=== PATIENT | female | born 1995 | race Caucasian/White ===

== ENCOUNTER 2018-04-23 16:06 | Emergency (ER) | END 2018-04-23 18:59 | disposition home or self-care (01) ==

== ENCOUNTER 2018-11-15 04:17 | Inpatient (IN) | payer OTHER ==
[~2018-11-15] VITALS: Ht 160 cm; Wt 100.5 kg
--- NOTE | 2018-11-15 04:36 | TRIAGE ---
OB Triage Datetime Report Generated by CPN: 11/15/2018 04:36 Datetime: 11/15/2018 04:29 Membrane Status: Ruptured Datetime: 11/15/2018 04:26 Stage of : OB Triage Assessment Type: Triage Maternal Assessment Level of Consciousness: Fully Conscious Headache: Denies Blurred Vision: No Respiratory Effort: Unlabored; Regular Rhythm; Equal Expansion Nausea/Vomiting: Denies RUQ Epigastric Pain: Denies Facial Edema: None Fall Risk Assessment History of Falling: (0) No Secondary Diagnosis: (0) No Ambulatory Aid: (0) Bedrest/Nurse Assist IV Therapy: (0) No Gait: (0) Normal/Bedrest/Immobile Mental Status: (0) Oriented to Own Ability Fall Score: 0 Fall Risk Score Definition: No Risk: No action required Datetime: 11/15/2018 04:25 EGA: 39.1 Datetime: 11/15/2018 04:24 Time of Arrival: 11/15/2018 04:06 Arrived By: Ambulatory Arrived From: Home Chief Complaint: SROM AT 0340 Movement: Present Contractions: Occasional Contractions: 'RANDOM' Rupture of Membranes: Ruptured Vaginal Bleeding: None Vaginal Discharge: Denies Recent Sexual Intercouse: Denies Abdominal Trauma: Not Applicable Patient Complaints: Other Time Provider Notified: 11/15/2018 04:31 Provider Notified: SALCEDA Initial Plan: EFM, SVE, CALL OB Datetime: 11/15/2018 04:22 Vaginal Exam Dilatation (cms): 2.5 Effacement (%): 70 Station: -2 Exam By: CYNTHIA DUARTE Vaginal Bleeding: None Cervix, Consistency: Soft Cervix, Position: Midposition Presentation 'A': Cephalic
[2018-11-15 04:39] VITALS: Ht 160 cm; Wt 100.5 kg
[2018-11-15] MEDS ORDERED: AMPICILLIN 2 GM/NS (PMX) 100 ML IV ONE (05:00)
[2018-11-15] MEDS ORDERED: LIDOCAINE 1% (MPF) 30 ML INJ INJ PRN (05:00)
[2018-11-15] MEDS ORDERED: CARBOPROST 250 MCG INJ IM PRN ×2 (05:00→20:30)
[2018-11-15] MEDS ORDERED: MINERAL OIL LIGHT 10 ML VIAL TOP PRN (05:00)
[2018-11-15] MEDS ORDERED: METHYLERGONOVINE 0.2 MG INJ IM PRN ×2 (05:00→20:30)
[2018-11-15] MEDS ORDERED: MISOPROSTOL 200 MCG TAB PR PRN ×2 (05:00→20:30)
[2018-11-15] MEDS ORDERED: OXYTOCIN 30 UNITS/LR 500 ML IV PRN ×2 (05:00→20:30)
[2018-11-15] MEDS ORDERED: BUTORPHANOL 2 MG INJ IV PRN (05:00)
[2018-11-15] MEDS ORDERED: OXYTOCIN 30 UNITS/LR 500 ML IV SCH ×4 (05:00→20:14)
[2018-11-15] MEDS: LACTATED RINGER'S 1,000 ML IV SCH ×2 (05:13→09:51)
[2018-11-15] MEDS ORDERED: OXYTOCIN 30 UNITS/LR 500 ML BAG IV ONE (07:00)
[2018-11-15] MEDS ORDERED: OXYTOCIN 10 UNIT INJ ONE (07:00)
[2018-11-15] MEDS: AMPICILLIN 1 GM/NS (PMX) 50 ML IV SCH ×3 (08:57→16:50)
[2018-11-15] MEDS ORDERED: FENTAnyl 2MCG/ML-ROPIV 0.2% 100 ML ONE (09:36)
--- NOTE | 2018-11-15 09:46 | PREAC ---
Date/Time of Note Date/Time of Note DATE: 11/15/18 TIME: 09:45 Anesthesia Eval and Record Evaluation Time Pre-Procedure Interview DATE: 11/15/18 TIME: 09:45 Age 23 Sex female NPO: 8 hrs Preoperative diagnosis Labor Pain Planned procedure Labor Epidural Past Medical History Past Medical History: Includes Heme: Anemia : : (1), Para: (0), Gestational age: (39) Surgery & Anesthesia Issues No known issue Meds Anticoagulation: No Beta Warren within 24 hr: No Reason Beta Warren not given: Pt. not on B-Warren Current Medications Lactated Ringer's 1,000 ml @ 125 mls/hr Q8H IV Last administered on 11/15/18at 05:13; Admin Dose 125 MLS/HR; Start 11/15/18 at 04:39 Ampicillin 50 ml @ 100 mls/hr Q4H IV Last administered on 11/15/18at 08:57; Admin Dose 100 MLS/HR; Start 11/15/18 at 09:00 Butorphanol Tartrate (Stadol) 2 mg Q2H PRN IV PAIN; Start 11/15/18 at 05:00 Lidocaine (Xylocaine 1% (Mpf)) 30 ml ONCE PRN INJ EPISIOTOMY; Start 11/15/18 at 05:00 Oxytocin/Lactated Ringer's 500 ml @ 500 mls/hr ONCE POST IV ; Start 11/15/18 at 05:00 Oxytocin/Lactated Ringer's 500 ml @ 125 mls/hr POST IV ; Start 11/15/18 at 05:00 Ibuprofen (Motrin) 600 mg ONCE PRN PO PAIN LEVEL 1-5; Start 11/15/18 at 05:00 Oxytocin/Lactated Ringer's 500 ml @ 0 mls/hr ONCE PRN IV VAGINAL BLEEDING; Start 11/15/18 at 05:00 Methylergonovine Maleate (Methergine) 0.2 mg ONCE PRN IM VAGINAL BLEEDING; Start 11/15/18 at 05:00 Carboprost Tromethamine (Hemabate) 250 mcg ONCE PRN IM VAGINAL BLEEDING; Start 11/15/18 at 05:00 Misoprostol (Cytotec) 1,000 mcg ONCE PRN MD VAGINAL BLEEDING; Start 11/15/18 at 05:00 Mineral Oil (Muri-Lube) 20 ml ONCE PRN TOP VAGINAL DELIVERY; Start 11/15/18 at 05:00 Oxytocin/Lactated Ringer's 500 ml @ 0 mls/hr FOR AUGMENTATION IV Last administered on 11/15/18at 09:01; Admin Dose 2 MLS/HR; Start 11/15/18 at 09:00 Meds reviewed: Yes Allergies Coded Allergies: No Known Allergy (Unverified , 11/15/18) Allergies Reviewed: Yes Labs/Studies Labs Reviewed: Reviewed by anesthesiologist Result Diagram: 11/15/18 0500 Laboratory Tests 11/15/18 05:00 Blood Bank Test 11/15/18 05:00 Antibody Screen NEGATIVE Blood Type A POSITIVE Rh Immune Globulin Candidate NO test: Positive Studies: ECG (n/a), CXR (n/a) Pre-procedure Exam Airway: Adequate mouth opening, Adequate thyromental dist Mallampati: Mallampati II Teeth: Normal Lung: Normal Heart: Normal ASA Physical Status ASA physical status: 2 Emergency: None Planned Anesthetic Neuraxial: Epidural Planned Pain Management Epidural Pre-operative Attestations Prior to commencing anesthesia and surgery, the patient was re-evaluated, there was verification of: *The patient's identity *The results of appropriate recent lab work and preoperative vital signs *The above evaluation not changing prior to induction *Anesthetic plan, risk benefits, alternative and complications discussed with patient/family; questions answered; patient/family understands, accepts and wishes to proceed. MIKE STILES MD Nov 15, 2018 09:46
--- NOTE | 2018-11-15 09:47 | PAC ---
Date/Time of Note Date/Time of Note DATE: 11/15/18 TIME: 09:47 Post-Anesthesia Notes Post-Anesthesia Note Last documented vital signs T 98.1 Activity: WNL Respiratory function: WNL Cardiovascular function: WNL Mental status: Baseline Pain reasonably controlled: Yes Hydration appropriate: Yes Nausea/Vomiting absent: Yes MIKE STILES MD Nov 15, 2018 09:47
[2018-11-15] MEDS ORDERED: FENTAnyl 2MCG/ML-ROPIV 0.2% 100 ML BAG EPI SCH (10:00)
[2018-11-15] MEDS ORDERED: NALOXONE (0.4 MG/ML) INJ IV PRN ×2 (10:00→19:00)
[2018-11-15] MEDS ORDERED: CEFAZOLIN 2 GM/50 ML (PMX) 50 ML IVPB ONE ×2 (17:46→18:00)
--- NOTE | 2018-11-15 18:12 | PREOPHP ---
DATE OF ADMISSION: 11/15/2018 HISTORY OF PRESENT ILLNESS: This is a 23-year-old lady, 1, EDC 11/21/2018 at 39 and 1/7 weeks, admitted to labor and delivery area in labor with ruptured bag of water at 3:40 a.m. on 11/15/2018, followed by contractions. She had care in my [place] office and the care was uneventful. PAST PERSONAL HISTORY: No history of diabetes, TB, asthma. ALLERGIES: NO ALLERGIES. SOCIAL HISTORY: The patient does not smoke. She does not drink. MEDICATIONS: She does not take any drugs except her iron and vitamins. GYNECOLOGIC HISTORY: She had menarche at the age of 10, every 28 days interval, 3 to 4 days duration, and moderate in amount. FAMILY HISTORY: Grandmother on mother's side has diabetes. She is 1, para 0. She had positive GBS. REVIEW OF SYSTEMS: CARDIOVASCULAR: No chest pains. RESPIRATORY: No cough. GASTROINTESTINAL: No diarrhea, no vomiting. GENITOURINARY: No dysuria. PHYSICAL EXAMINATION: GENERAL: Reveals a conscious, coherent lady and in no acute distress. VITAL SIGNS: Her blood pressure 120/80, pulse rate 80 per minute, respirations 16 per minute. BREASTS, HEART AND LUNGS: Within normal limits. ABDOMEN: Soft, fundic height 38 cm. heart tones 140 per minute. PELVIC: Done by nurse on admission revealed the cervix to be 1 to 2 cm dilatation, -2 in cephalic presentation with the bag of water ruptured. Nitrazine test was positive. EXTREMITIES: No pedal edema. ADMITTING DIAGNOSIS: She is 39 and 1/7 weeks intrauterine in labor. The patient had an ultrasound done and the estimated weight was 7 pounds 15 ounces. So, she was started on Pitocin augmentation with a positive GBS. She was given ampicillin. At 8:45 a.m., I re-evaluated the patient. The cervix was 5 cm dilated, 100% effaced, station 0 with a bag of water ruptured. scalp electrodes and IPC were inserted. She was started on Pitocin augmentation. The vagina was noted to be very tight with converging sidewalls, but the patient wanted to try vaginal delivery. Then, she was continued on Pitocin and she received labor epidural. At 1:19 p.m., she was 7 cm dilated and Pitocin was at 6 milliunits. Then, when she was completely dilated and when the patient was feeling pressure pushing she was coached to push. The patient was pushing for at least 1-1/2 hours. The station remained to be at 0 station with +3, +2 to +3 caput. After 1.5 hours of pushing, the patient refused to continue to push. She wanted to go for , so the indication for was arrest of descent and the patient desired and cephalopelvic disproportion at 39 weeks and 11/16. The procedures were explained to the patient and to her partner and both understood everything totally. The risks, benefits, and alternatives was discussed with her as well. Dictated By: BEBO AQUINO/FREDERIC Conf#: [id number] DID#: [id number] MTDD
[2018-11-15] MEDS ORDERED: FENTAnyl 50 MCG/ML VIAL ONE (18:14)
[2018-11-15] MEDS ORDERED: ONDANSETRON 4 MG INJ ONE (18:25)
[2018-11-15] MEDS ORDERED: METOCLOPRAMIDE 10 MG INJ ONE (18:25)
[2018-11-15] MEDS ORDERED: KETOROLAC 30 MG INJ ONE (18:25)
[2018-11-15] MEDS ORDERED: morphine SULFATE/PF (10 MG/10 ML) INJ ONE (18:25)
[2018-11-15] MEDS ORDERED: DEXAMETHASONE 4 MG/ML 1 ML INJ ONE (18:25)
[2018-11-15] MEDS ORDERED: LABETALOL HCL 20MG INJ IV PRN (19:00)
[2018-11-15] MEDS ORDERED: NALBUPHINE HCL (10 MG/1 ML) INJ IV PRN (19:00)
[2018-11-15] MEDS ORDERED: DIPHENHYDRAMINE 50 MG INJ IV PRN ×2 (19:00)
[2018-11-15] MEDS ORDERED: EPHEDrine SULFATE 50 MG/5 ML SYG IV PRN (19:00)
[2018-11-15] MEDS ORDERED: MEPERIDINE 25 MG INJ IV PRN (19:00)
[2018-11-15] MEDS ORDERED: OXYCODONE/ACETAMINOPHEN (5/325) TAB PO PRN (19:00)
[2018-11-15] MEDS ORDERED: HYDROmorphONE 0.5 MG/0.5 ML SYG IV PRN ×2 (19:00)
[2018-11-15] MEDS ORDERED: morphine 2 MG INJ IV PRN ×2 (19:00)
[2018-11-15] MEDS ORDERED: HYDROmorphONE 1 MG/5 ML IV SYRINGE IV PRN ×3 (19:00)
[2018-11-15] MEDS ORDERED: ACETAMINOPHEN 500 MG TAB PO PRN (19:00)
[2018-11-15] MEDS ORDERED: ONDANSETRON 4 MG INJ IV PRN ×2 (19:00)
[2018-11-15] MEDS ORDERED: KETOROLAC 30 MG INJ IV PRN (19:00)
[2018-11-15] MEDS ORDERED: FENTAnyl 50 MCG/ML VIAL IV PRN ×3 (19:00)
[2018-11-15] MEDS ORDERED: METOCLOPRAMIDE 10 MG INJ IV PRN (19:00)
[2018-11-15] MEDS ORDERED: LACTATED RINGER'S 1,000 ML IV SCH (20:14)
--- NOTE | 2018-11-15 20:14 | OPPN ---
Date/Time of Note Date/Time of Note DATE: 11/15/18 TIME: 20:11 Operative Report Planned Procedure Procedure date Nov 15, 2018 Procedure(s) PRIMARY CSECTION Performed by see signature line Scutcher Tender: SAI HART M.D. 2nd Scutcher Tender none Pre-procedure diagnosis [id number] 17 IUP IN LABOR CPD ARREST OF DECENT DESIRES CSECTION SUSPECTED MACROSOMIA [id number] Anesthesia Type: [id number] epidural Post-Procedure Post-procedure diagnosis 39WEEKS 11/16 IUP IN LABOR CPD ARREST OF DECENT DESIRES CSECTION SUSPECTED MACROSOMIA Findings Live Baby GIRL, Apgars 8and 9, [id number] Estimated Blood Loss: 500 - 600 mls Specimen(s) none Grafts/Implant(s) PLACENTA Complication(s) none BEBO PETER MD Nov 15, 2018 20:14
[2018-11-15] MEDS ORDERED: METHYLERGONOVINE 0.2 MG TAB PO PRN (20:30)
[2018-11-15] MEDS ORDERED: LANOLIN HPA 1 PKT TOP PRN (20:30)
[2018-11-15] MEDS ORDERED: HYDROCODONE/APAP (5/325) TAB PO PRN (20:30)
[2018-11-15] MEDS: SENNA/DOCUSATE NA (8.6MG/50MG) TAB PO SCH (21:00)
[2018-11-15 22:00] VITALS: BP 120/68; PULSE 67; RESP 18
[2018-11-16] VITALS: BP 121/61; PULSE 75; RESP 18
[2018-11-16 03:45] VITALS: BP 116/69; PULSE 87; RESP 18
[2018-11-16 08:00] VITALS: BP 106/58; PULSE 78; RESP 19
[2018-11-16] MEDS: SENNA/DOCUSATE NA (8.6MG/50MG) TAB PO SCH ×2 (09:08→21:37)
[2018-11-16] MEDS ORDERED: INFLUENZA VIRUS VACCINE 0.5 ML (DISPENSING) IM* ONE (10:00)
[2018-11-16 12:00] VITALS: BP 105/60; PULSE 74; RESP 20
[2018-11-16] MEDS ORDERED: LACTATED RINGER'S 1,000 ML IV SCH (14:00)
[2018-11-16 16:00] VITALS: BP 102/56; PULSE 94; RESP 20
--- NOTE | 2018-11-16 16:25 | PN ---
Date/Time of Note Date/Time of Note DATE: 11/16/18 TIME: 16:24 Assessment/Plan VTE Prophylaxis Risk score (from Ns)>0 risk: 3 SCD applied (from [facility] [place] Yes SCD contraindicated: low risk/ambulating Pharmacological prophylaxis: NA/contraindicated Pharm contraindication: low risk/ambulating Lines/Catheters IV C[facility]ter Type (from [facility]): Peripheral IV Assessment/Plan Assessment/Plan POSTCSECTION DAY 1 CHRONIC IRON DEFICIENCY ANEMIA ORDERED ADVANCE DIET TOLERATED CBC ON 3RD POSTOP DAY Result Diagram: 11/16/18 0646 11/16/18 0646 Results 24hrs Laboratory Tests Test 11/16/18 06:46 White Blood Count 20.2 #H Red Blood Count 3.51 L Hemoglobin 9.6 L Hematocrit 29.5 L Mean Corpuscular Volume 84.0 Mean Corpuscular Hemoglobin 27.4 L Mean Corpuscular Hemoglobin Concent 32.5 Red Cell Distribution Width 13.5 Platelet Count 169 Mean Platelet Volume 12.2 H Immature Granulocytes % 0.600 H Neutrophils % 88.0 H Lymphocytes % 6.9 L Monocytes % 4.4 Eosinophils % 0.0 Basophils % 0.1 Nucleated Red Blood Cells % 0.0 Immature Granulocytes # 0.120 H Neutrophils # 17.7 H Lymphocytes # 1.4 Monocytes # 0.9 Eosinophils # 0.0 Basophils # 0.0 Nucleated Red Blood Cells # 0.0 Sodium Level 133 L Potassium Level 4.1 Chloride Level 105 Carbon Dioxide Level 20 L Anion Gap 8 Blood Urea Nitrogen 11 Creatinine 0.61 Est Glomerular Filtrat Rate mL/min > 60 Glucose Level 103 Calcium Level 8.9 Subjective 24 Hr Interval Summary Free Text/Dictation POST CSECTION DAY 1 COMPLAIN OF INCISIONAL PAINS GOOD URINE OUTPUT PASSING GAS PER RECTUM NO BOWEL MOVEMENT YET Exam/Review of Systems Vital Signs Vitals Vital Signs Date Temp Pulse Resp B/P (MAP) Pulse Ox O2 O2 Flow FiO2 Time Delivery Rate 11/16/18 98.6 94 20 102/56 97 Room Air 16:00 (71) Intake and Output 11/15/18 11/15/18 11/16/18 1515:00 23:00 07:00 IntakeIntake Total 106 ml 1580 ml OutputOutput Total 2173 ml 550 ml BalanceBalance 106 ml -593 ml -550 ml Exam VITAL SIGNS STABLE: YES AFEBRILE: YES BREAST NOT ENGORGED, NON-TENDER, NO APPRECIABLE MASS: YES LUNGS CLEAR, NO RALES, WHEEZES, RHONCHI: YES SINUS RHYTHM WITHOUT MURMUR: YES ABDOMEN: NON-TENDER FUNDUS: BELOW UMBILICUS BOWEL SOUNDS: PRESENT UTERUS: FIRM INCISION (CLEAN, DRY, AND INTACT): YES LOCHIA: LIGHT DEEP TENDON REFLEXES: 0 EXTREMITIES: NO CALF TENDERNESS EDEMA SCALE: NONE Medications Medications Current Medications Butorphanol Tartrate (Stadol) 2 mg Q2H PRN IV PAIN; Start 11/15/18 at 05:00 Lidocaine (Xylocaine 1% (Mpf)) 30 ml ONCE PRN INJ EPISIOTOMY; Start 11/15/18 at 05:00 Ibuprofen (Motrin) 600 mg ONCE PRN PO PAIN LEVEL 1-5; Start 11/15/18 at 05:00 Oxytocin/Lactated Ringer's 500 ml @ 0 mls/hr ONCE PRN IV VAGINAL BLEEDING; Start 11/15/18 at 05:00 Methylergonovine Maleate (Methergine) 0.2 mg ONCE PRN IM VAGINAL BLEEDING; Start 11/15/18 at 05:00 Carboprost Tromethamine (Hemabate) 250 mcg ONCE PRN IM VAGINAL BLEEDING; Start 11/15/18 at 05:00 Misoprostol (Cytotec) 1,000 mcg ONCE PRN VA VAGINAL BLEEDING; Start 11/15/18 at 05:00 Mineral Oil (Muri-Lube) 20 ml ONCE PRN TOP VAGINAL DELIVERY; Start 11/15/18 at 05:00 Naloxone HCl (Narcan) 0.2 mg Q2M PRN IV DECREASED REPIRATORY RATE; Start 11/15/18 at 10:00 Hydromorphone HCl (Dilaudid) 0.2 mg Q2H PRN IV PAIN LEVEL 1-5; Start 11/15/18 at 19:00 Hydromorphone HCl (Dilaudid) 0.4 mg Q2H PRN IV PAIN LEVEL 6-10; Start 11/15/18 at 19:00 Morphine Sulfate (morphine) 2 mg Q2H PRN IV PAIN LEVEL 1-5; Start 11/15/18 at 19:00 Morphine Sulfate (morphine) 4 mg Q2H PRN IV PAIN LEVEL 6-10; Start 11/15/18 at 19:00 Ketorolac Tromethamine (Toradol) 30 mg Q6H PRN IV PAIN LEVEL 6-10; Start 11/15/18 at 19:00; Stop 11/18/18 at 18:59 Acetaminophen (Tylenol Tab) 500 mg Q4H PRN PO PAIN LEVEL 1-3; Start 11/15/18 at 19:00 Acetaminophen/ Hydrocodone Bitart ([place] (5/325)) 1 tab Q4H PRN PO PAIN LEVEL 4-6; Start 11/15/18 at 19:00 Diphenhydramine HCl (Benadryl) 25 mg Q4H PRN IV PRURITUS; Start 11/15/18 at 19:00 Nalbuphine HCl (Nubain) 10 mg Q4H PRN IV PRURITUS; Start 11/15/18 at 19:00 Ondansetron HCl (Zofran Inj) 4 mg Q6H PRN IV NAUSEA AND/OR VOMITING; Start 11/15/18 at 19:00 Naloxone HCl (Narcan) 0.2 mg Q2M PRN IV DECREASED REPIRATORY RATE; Start 11/15/18 at 19:00 Miscellaneous Information (* Miscellaneous Pharmacy Order) DURAMORPH: 5 MG EPIDU... GIVEN NEURAXIAL XX ; Start 11/15/18 at 19:00 Methylergonovine Maleate (Methergine) 0.2 mg Q6H PRN PO VAGINAL BLEEDING; Start 11/15/18 at 20:30 Acetaminophen/ Hydrocodone Bitart ([place] (5/325)) 1 tab Q4H PRN PO PAIN LEVEL 4-6; Start 11/15/18 at 20:30 Acetaminophen/ Hydrocodone Bitart ([place] (5/325)) 2 tab Q4H PRN PO PAIN LEVEL 7-10; Start 11/15/18 at 20:30 Ibuprofen (Motrin) 800 mg Q8 PRN PO MILD PAIN LEVEL 1-3; Start 11/18/18 at 19:00 Simethicone (Mylicon) 160 mg Q8H PRN PO DISTENSION/GAS/BLOATING; Start 11/15/18 at 20:30 Senna/Docusate Sodium (Senokot-S) 1 tab BID PO Last administered on 11/16/18at 09:08; Admin Dose 1 TAB; Start 11/15/18 at 21:00 Lanolin (Lanolin Hpa) 1 applic BEDSIDE MEDICATION PRN TOP BEDSIDE FOR LOUIE TO NIPPLES Last administered on 11/16/18at 09:08; Admin Dose 1 APPLIC; Start 11/15/18 at 20:30 Diphtheria/ Tetanus/Acell Pertussis (Adacel) 0.5 ml ONCE ONCE IM* ; Start 11/18/18 at 09:00; Stop 11/18/18 at 09:01 Measles/Mumps/ Rubella Vaccine Live (Mmr Ii Vaccine) 0.5 ml ONCE ONCE SC* ; Start 11/18/18 at 09:00; Stop 11/18/18 at 09:01 Oxytocin/Lactated Ringer's 500 ml @ 0 mls/hr ONCE PRN IV VAGINAL BLEEDING; Start 11/15/18 at 20:30 Methylergonovine Maleate (Methergine) 0.2 mg ONCE PRN IM VAGINAL BLEEDING; Start 11/15/18 at 20:30 Carboprost Tromethamine (Hemabate) 250 mcg ONCE PRN IM VAGINAL BLEEDING; Start 11/15/18 at 20:30 Misoprostol (Cytotec) 1,000 mcg ONCE PRN VA VAGINAL BLEEDING; Start 11/15/18 at 20:30 BEBO PETER MD Nov 16, 2018 16:25
[2018-11-16 20:00] VITALS: BP 120/66; PULSE 78; RESP 20
[2018-11-16] MEDS: HYDROCODONE/APAP (5/325) TAB PO PRN (21:37)
[2018-11-16] MEDS: IBUPROFEN 600 MG TAB PO PRN (21:37)
[2018-11-17 02:50] VITALS: BP 105/54; PULSE 79; RESP 20
[2018-11-17] MEDS: HYDROCODONE/APAP (5/325) TAB PO PRN ×3 (03:39→16:43)
[2018-11-17] MEDS ORDERED: BISACODYL 10 MG SUPP PR ONE ×2 (05:30→17:00)
[2018-11-17] MEDS ORDERED: MAGNESIUM HYDROXIDE 30ML CUP PO ONE (05:30)
[2018-11-17 08:00] VITALS: BP 105/59; PULSE 71; RESP 18
[2018-11-17] MEDS: SENNA/DOCUSATE NA (8.6MG/50MG) TAB PO SCH ×2 (09:01→21:46)
--- NOTE | 2018-11-17 13:31 | PN ---
Date/Time of Note Date/Time of Note DATE: 11/17/18 TIME: 13:30 Assessment/Plan VTE Prophylaxis Risk score (from Ns)>0 risk: 3 SCD applied (from Ns): No SCD contraindicated: low risk/ambulating Pharmacological prophylaxis: NA/contraindicated Pharm contraindication: low risk/ambulating Lines/Catheters IV Catheter Type (from Nrsg): Sal[place] Assessment/Plan Assessment/Plan POST CSECTION DAY 2 CHRONIC IRON DEFICIENCY ANEMIA HOME TOMORROW CBC TOMORROW COUNSELED INSTRUCTED PRESCRIPTION GIVEN FOR PAIN RETURN TO CLINIC IN 2 WEEKS CALL OFFICE IF THERE IS ANY PROBLEM OR CONCERN CONTINUE WITH VITAMINS OD AND FERROUS SULFATE 325MG PO TID DIET ADVISED Result Diagram: 11/17/18 0747 11/16/18 0646 Results 24hrs Laboratory Tests Test 11/17/18 07:47 White Blood Count 11.6 #H Red Blood Count 3.12 L Hemoglobin 8.6 L Hematocrit 27.2 L Mean Corpuscular Volume 87.2 Mean Corpuscular Hemoglobin 27.6 L Mean Corpuscular Hemoglobin Concent 31.6 L Red Cell Distribution Width 13.8 Platelet Count 134 #L Mean Platelet Volume 12.1 H Immature Granulocytes % 0.400 Neutrophils % 69.7 Lymphocytes % 22.5 Monocytes % 5.9 Eosinophils % 1.2 Basophils % 0.3 Nucleated Red Blood Cells % 0.0 Immature Granulocytes # 0.050 H Neutrophils # 8.1 H Lymphocytes # 2.6 Monocytes # 0.7 Eosinophils # 0.1 Basophils # 0.0 Nucleated Red Blood Cells # 0.0 Subjective 24 Hr Interval Summary Free Text/Dictation POST CSECTION DAY 2 GOOD BOWEL MOVEMENT GOOD URINE OUTPUT FEELS LESS INCISIONAL PAINS Exam/Review of Systems Vital Signs Vitals Vital Signs Date Temp Pulse Resp B/P (MAP) Pulse Ox O2 O2 Flow FiO2 Time Delivery Rate 11/17/18 98.1 71 18 105/59 Room Air 08:00 (74) 11/16/18 97 16:00 Intake and Output 11/16/18 11/16/18 11/17/18 1515:00 23:00 07:00 IntakeIntake Total 1000 ml 925 ml OutputOutput Total 1350 ml 1550 ml 1100 ml BalanceBalance -350 ml -625 ml -1100 ml Exam VITAL SIGNS STABLE: YES AFEBRILE: YES BREAST NOT ENGORGED, NON-TENDER, NO APPRECIABLE MASS: YES LUNGS CLEAR, NO RALES, WHEEZES, RHONCHI: YES SINUS RHYTHM WITHOUT MURMUR: YES ABDOMEN: NON-TENDER FUNDUS: BELOW UMBILICUS BOWEL SOUNDS: PRESENT UTERUS: FIRM INCISION (CLEAN, DRY, AND INTACT): YES LOCHIA: LIGHT DEEP TENDON REFLEXES: 0 EXTREMITIES: NO CALF TENDERNESS EDEMA SCALE: NONE Medications Medications Current Medications Butorphanol Tartrate (Stadol) 2 mg Q2H PRN IV PAIN; Start 11/15/18 at 05:00 Lidocaine (Xylocaine 1% (Mpf)) 30 ml ONCE PRN INJ EPISIOTOMY; Start 11/15/18 at 05:00 Ibuprofen (Motrin) 600 mg ONCE PRN PO PAIN LEVEL 1-5 Last administered on 11/16/18at 21:37; Admin Dose 600 MG; Start 11/15/18 at 05:00 Oxytocin/Lactated Ringer's 500 ml @ 0 mls/hr ONCE PRN IV VAGINAL BLEEDING; Start 11/15/18 at 05:00 Methylergonovine Maleate (Methergine) 0.2 mg ONCE PRN IM VAGINAL BLEEDING; Start 11/15/18 at 05:00 Carboprost Tromethamine (Hemabate) 250 mcg ONCE PRN IM VAGINAL BLEEDING; Start 11/15/18 at 05:00 Misoprostol (Cytotec) 1,000 mcg ONCE PRN SC VAGINAL BLEEDING; Start 11/15/18 at 05:00 Mineral Oil (Muri-Lube) 20 ml ONCE PRN TOP VAGINAL DELIVERY; Start 11/15/18 at 05:00 Naloxone HCl (Narcan) 0.2 mg Q2M PRN IV DECREASED REPIRATORY RATE; Start 11/15/18 at 10:00 Hydromorphone HCl (Dilaudid) 0.2 mg Q2H PRN IV PAIN LEVEL 1-5; Start 11/15/18 at 19:00 Hydromorphone HCl (Dilaudid) 0.4 mg Q2H PRN IV PAIN LEVEL 6-10; Start 11/15/18 at 19:00 Morphine Sulfate (morphine) 2 mg Q2H PRN IV PAIN LEVEL 1-5; Start 11/15/18 at 19:00 Morphine Sulfate (morphine) 4 mg Q2H PRN IV PAIN LEVEL 6-10; Start 11/15/18 at 19:00 Ketorolac Tromethamine (Toradol) 30 mg Q6H PRN IV PAIN LEVEL 6-10 Last administered on 11/16/18at 17:53; Admin Dose 30 MG; Start 11/15/18 at 19:00; Stop 11/18/18 at 18:59 Acetaminophen (Tylenol Tab) 500 mg Q4H PRN PO PAIN LEVEL 1-3; Start 11/15/18 at 19:00 Acetaminophen/ Hydrocodone Bitart ([place] (5/325)) 1 tab Q4H PRN PO PAIN LEVEL 4-6 Last administered on 11/16/18at 21:37; Admin Dose 1 TAB; Start 11/15/18 at 19:00 Diphenhydramine HCl (Benadryl) 25 mg Q4H PRN IV PRURITUS; Start 11/15/18 at 19:00 Nalbuphine HCl (Nubain) 10 mg Q4H PRN IV PRURITUS; Start 11/15/18 at 19:00 Ondansetron HCl (Zofran Inj) 4 mg Q6H PRN IV NAUSEA AND/OR VOMITING; Start 11/15/18 at 19:00 Naloxone HCl (Narcan) 0.2 mg Q2M PRN IV DECREASED REPIRATORY RATE; Start 11/15/18 at 19:00 Miscellaneous Information (* Miscellaneous Pharmacy Order) DURAMORPH: 5 MG EPIDU... GIVEN NEURAXIAL XX ; Start 11/15/18 at 19:00 Methylergonovine Maleate (Methergine) 0.2 mg Q6H PRN PO VAGINAL BLEEDING; Start 11/15/18 at 20:30 Acetaminophen/ Hydrocodone Bitart ([place] (5/325)) 1 tab Q4H PRN PO PAIN LEVEL 4-6; Start 11/15/18 at 20:30 Acetaminophen/ Hydrocodone Bitart ([place] (5/325)) 2 tab Q4H PRN PO PAIN LEVEL 7-10 Last administered on 11/17/18at 09:01; Admin Dose 2 TAB; Start 11/15/18 at 20:30 Ibuprofen (Motrin) 800 mg Q8 PRN PO MILD PAIN LEVEL 1-3; Start 11/18/18 at 19:00 Simethicone (Mylicon) 160 mg Q8H PRN PO DISTENSION/GAS/BLOATING Last administered on 11/16/18at 21:38; Admin Dose 160 MG; Start 11/15/18 at 20:30 Senna/Docusate Sodium (Senokot-S) 1 tab BID PO Last administered on 11/17/18at 09:01; Admin Dose 1 TAB; Start 11/15/18 at 21:00 Lanolin (Lanolin Hpa) 1 applic BEDSIDE MEDICATION PRN TOP BEDSIDE FOR LOUIE TO NIPPLES Last administered on 11/16/18at 09:08; Admin Dose 1 APPLIC; Start 11/15/18 at 20:30 Diphtheria/ Tetanus/Acell Pertussis (Adacel) 0.5 ml ONCE ONCE IM* ; Start 11/18/18 at 09:00; Stop 11/18/18 at 09:01 Measles/Mumps/ Rubella Vaccine Live (Mmr Ii Vaccine) 0.5 ml ONCE ONCE SC* ; Start 11/18/18 at 09:00; Stop 11/18/18 at 09:01 Oxytocin/Lactated Ringer's 500 ml @ 0 mls/hr ONCE PRN IV VAGINAL BLEEDING; Start 11/15/18 at 20:30 Methylergonovine Maleate (Methergine) 0.2 mg ONCE PRN IM VAGINAL BLEEDING; Start 11/15/18 at 20:30 Carboprost Tromethamine (Hemabate) 250 mcg ONCE PRN IM VAGINAL BLEEDING; Start 11/15/18 at 20:30 Misoprostol (Cytotec) 1,000 mcg ONCE PRN SC VAGINAL BLEEDING; Start 11/15/18 at 20:30 Bisacodyl (Dulcolax Supp) 10 mg ONCE ONCE SC ; Start 11/17/18 at 17:00; Stop 11/17/18 at 17:01 BEBO PETER MD Nov 17, 2018 13:31
--- NOTE | 2018-11-17 13:34 | OPR ---
DATE OF OPERATION: 11/15/2018 PREOPERATIVE DIAGNOSES: 1. A 39 and 1/7 weeks' intrauterine in labor, cephalopelvic disproportion, arrest of desce nt. 2. The patient desires . 3. Suspected macrosomia. POSTOPERATIVE DIAGNOSES: 1. A 39 and 1/7 weeks' intrauterine in labor, cephalopelvic disproportion, arrest of desce nt. 2. The patient desires . 3. Suspected macrosomia. SURGEON: Dulce Bello MD OBSERVATION NURSE: Av Sánchez MD ANESTHESIA: Epidural. OPERATION PERFORMED: Primary low transverse section. OPERATIVE TECHNIQUE: Under epidural anesthesia, the patient was prepped and draped in the usual [facility] ion for abdominal surgery. After checking for the effect of the anesthesia, a Pfannenstiel incision, 12 cm skin incision was performed. The incision was carried from the skin up to the fascia. Upon o pening the skin up to the fascia, small blood vessels were noted to be oozing and these were all caut erized. Fascia was opened transversely followed by splitting the muscles vertically and the peritone um vertically. Upon opening the abdominal cavity, the bladder blade was put in place. The lower andra rine segment was noted to be very thinned out. The bladder blade was put in place. A small raven was performed from the serosa up to the endometrium on the lower uterine segment and the raven was samantha d sideways with the aid of my 2 fingers. My left hand was inserted in the lower segment of the uteru s and the baby's head was delivered. The circulating nurse put her hand inside the vagina to push th e baby's head up to delivery of baby's head through the section. Baby's head was delivered and 3+ caput was noted. Baby's airway was quickly suctioned with amniotic fluid. The anterior shoul pierre, posterior shoulder and rest of the body of the baby was delivered. There was 1 loop of cord miguel angel und the baby's neck that needs to be released prior to the delivery of the rest of the body of the ba by. Baby cord was clamped. Cord segment was obtained for blood gases then cord blood was obtained. The placenta was delivered manually and complete. The uterus was exteriorized. The uterus was brennon nsed with wet lap sponge to make sure that no membranes were left behind. After correct sponge count, the uterus was closed in the usual fashion using #1 chromic for the first layer, continuous l ocking suture was used followed by #1 chromic for the second layer, imbricating sutures were used. B leeders were checked and there was no bleeding noted. After checking for any bleeders in which there were none, both tubes and ovaries were inspected. They were healthy looking. The back of the uteru s and the broad ligament were checked for hematoma and there was none noted. The uterus was put back to the pelvic cavity. Once again, uterine incision was checked for any bleeders and there was no bl eeding noted. After correct sponge count, needle count and instrument count as confirmed by the scru b tech and filling station attendant, the abdomen was closed in the usual fashion using 0 Vicryl for the peritoneum, 0 Vicryl for the muscles. For the fascia, 0 Vicryl continuous stitch was used followed by few figur e-of-eight sutures. For the subcutaneous tissue, it was closed with 3-0 Vicryl and the skin was clos ed with 3-0 Vicryl, subcuticular suture was used. The patient tolerated the procedure well. Estimat ed blood loss was about 600 mL. Vital signs were stable during and after the procedure. She deliver ed a healthy baby girl on 11/15/2018 at 18:16 weighing 7 pounds, 9 ounces, 2435 grams, 20-1/2 inches long, 8 and 9. Dictated By: DULCE AQUINO/FREDERIC Conf#: [id number] DID#: [id number]
[2018-11-17 16:00] VITALS: BP 121/70; PULSE 62; RESP 20
[2018-11-17 19:50] VITALS: BP 113/55; PULSE 70; RESP 20
[2018-11-18] MEDS: IBUPROFEN 600 MG TAB PO PRN ×2 (00:09→06:07)
[2018-11-18] MEDS: HYDROCODONE/APAP (5/325) TAB PO PRN (00:09)
[2018-11-18 04:22] VITALS: BP 100/59; PULSE 73; RESP 17
[2018-11-18 08:21] VITALS: BP 106/65; PULSE 71; RESP 18
[2018-11-18] MEDS ORDERED: DIPHTH/TET/ACEL PERTUSS (ADULT) 0.5 ML VIAL IM* ONE (09:00)
[2018-11-18] MEDS ORDERED: MEASLES,MUMPS,RUBELLA VACCINE INJ SC* ONE (09:00)
[2018-11-18] MEDS: SENNA/DOCUSATE NA (8.6MG/50MG) TAB PO SCH (09:26)
[2018-11-18] MEDS ORDERED: IBUPROFEN 800 MG TAB PO PRN (19:00)
--- NOTE | 2018-11-22 13:29 | DS ---
DATE OF ADMISSION: 11/15/2018 DATE OF DISCHARGE: 11/18/2018 This is a 23-year-old lady, 1 at 39 and 1/7 weeks, admitted because of ruptured bag of water, in labor. HISTORY OF PRESENT ILLNESS: See dictated history and physical. PHYSICAL EXAMINATION: See dictated history and physical. ADMITTING DIAGNOSIS: 39 and 11/16/2018 weeks intrauterine in labor. PROGRESS OF LABOR: See dictated history and physical. HOSPITAL COURSE: Patient was pushing for 1-1/2 hours with last 3 caput after pushing for 1-1/2 hours . Patient refused to continue to push and she wanted to go for for arrest of descent, so s he underwent a primary low transverse section on 11/15/2018. Patient desires for suspected macrosomia, cephalopelvic disproportion and arrest of descent. She tolerated the procedure well. She did have good course. Diet was advanced from liquid to general diet. She had good bowel movement postoperatively. She has less pain on the third postoperative day. She was dis charged home on the third postoperative day on general diet and activity was restricted. She was cou nseled. She was instructed. She was given medication for pain. The hematocrit on discharge was 27. 2, hemoglobin 8.6. She delivered a healthy baby girl 11/15/2018 weighing 7 pounds 9 ounces, 8 a nd 9. FINAL DIAGNOSES: 39-1/7 weeks intrauterine in labor, delivered. Arrest of descent, suspec neo macrosomia, cephalopelvic disproportion. The patient desires . Dictated By: BEBO PETER MD NS/NTS Conf#: [id number] DID#: [id number] CC: BEBO PETER MD;*EndCC*
== END 2018-11-18 16:00 | disposition home or self-care (01) | DRG 788 ==
LOC: OBT 04:17 → L-D 04:19 → OBT 04:37 → L-D 06:01 → PP1 21:57
PROVIDERS: ADMIT Obstetrics & Gynecology; ATTEND Obstetrics & Gynecology
PROC: 10D00Z1 Extraction of Products of Conception, Low, Open Approach (ICD-10-PCS; principal; 2018-11-15 18:30)
DX: O33.9 Maternal care for disproportion, unspecified (principal); O62.1 Secondary uterine inertia; Z3A.39 39 weeks gestation of pregnancy; Z37.0 Single live birth
CPT/HCPCS: 36415; 62319; 76815; 80048; 82803; 85025; 85610; 85730; 86592; 86850; 86900; 86901; 87340; 88307; 99464; G0463; J0290; J0690; J1100; J1885; J2274; J2405; J2590; J2765; J3010; J7120